=== PATIENT | male | born 1955 | race Caucasian/White ===

== ENCOUNTER 2021-12-10 05:55 | Inpatient (IN) | payer MEDICARE, SELFPAY ==
[2021-12-10] VITALS (13 sets, daily range): BP systolic 141–156; BP diastolic 81–108; PULSE 88–103; RESP 18–26; TEMP 36.4–36.8; O2SAT 87–100; BMI 40.6
--- NOTE | ~2021-12-10 | US_ITS ---
US venous doppler [facility] DATE: 12/11/2021 09:06 INDICATION: Swelling of the lower extremities TECHNIQUE: Real-time imaging and color flow imaging and Doppler analysis of the veins of the lower ex tremities COMPARISON: None FINDINGS: . The greater saphenous veins are patent. There is spontaneous and phasic flow and normal a ugmentation and color flow signal and normal compression of the deep veins of the lower extremities. IMPRESSION: No evidence of deep venous thrombosis of the lower extremities Reviewed, dictated and finalized at [facility]. Reviewed, dictated and finalized at location [facility].
--- NOTE | ~2021-12-10 | XR_ITS ---
XR chest 2V 12/10/2021 07:20 Indication: Shortness of breath Procedure: AP and lateral views of the chest Comparison: No prior studies for comparison. Findings: Heart size normal. Bibasilar infiltrates. No significant effusion or pneumothorax. No acute osseous abnormality. Impression: 1: Bibasilar infiltrates may represent atelectasis or pneumonia. Reviewed, dictated and finalized at location [facility]. Impression: 1: Bibasilar infiltrates may represent atelectasis or pneumonia.
--- NOTE | ~2021-12-10 | XR_ITS ---
EXAMINATION: XR chest 1V portable DATE: 12/13/2021 15:10 INDICATION: Shortness of breath. TECHNIQUE: A single frontal view of the chest was obtained on 2 radiographs. COMPARISON: Chest 2 views 12/10/2021 FINDINGS: There are lucencies in the upper lungs, consistent with emphysema. There is mild atelectasi s at the lung bases. No pleural effusion or pneumothorax. The heart size is normal. IMPRESSION: 1. Emphysema. 2. Mild atelectasis at the lung bases. Reviewed, dictated and finalized at location [facility].
--- NOTE | 2021-12-10 06:46 | ECG_ITS ---
Measurements Intervals [place] Rate: 97 P: 57 WI: 148 QRS: 58 QRSD: 99 T: 60 QT: 307 QTc: 390 Interpretive Statements SINUS RHYTHM WITH OCCASIONAL SUPRAVENTRICULAR PREMATURE COMPLEXES NONSPECIFIC T-WAVE ABNORMALITY NO PREVIOUS ECG AVAILABLE FOR COMPARISON Electronically Signed On 12-11-2021 12:20:48 CDT by Javier Beebe M.D.
[2021-12-10 07:05] LABS: Alveolar/Arterial O2 Gradient 14.9 mmHg; Base Excess ABG 7.2 mEq/l (+/-2.0); Carboxyhemoglobin 2.3 % THb (0-2.0); Device ROOM AIR; Fractional Inspired Oxygen 21 %; HCO3 ABG 33.4 mEq/l (22.0-26.0); Methemoglobin ABG 0.2 %THb (0-1.5); Oxygen Content ABG 22.6 %vol (16.0-22.0); Oxygen Saturation ABG 94.7 % (95.0-100.0); Oxyhemoglobin 92.5 % THb (90.0-100.0); PO2 ABG 72.6 mmHg (80.0-100.0); PO2 FiO2 Ratio Arterial Blood 3.46 %; Site Drawn LEFT BRACHIAL; Total Hemoglobin 17.4 g/dL (12.0-18.0); pH ABG 7.426 (7.350-7.450)
[2021-12-10 07:18] LABS: Basophils Absolute Auto 0.1 K/mm3 (0.0-0.1); Basophils Percent Auto 0.6 % (0.2-1.2); Eosinophils Absolute Auto 0.2 K/mm3 (0-0.3); Eosinophils Percent Auto 1.1 % (0-4.4); Hemoglobin 16.5 g/dL (14.0-18.0); Immature Granulocyte Absolute 0.26 K/mm3 (0.00-0.031); Immature Granulocyte Percent A 1.7 % (0-0.5); Lymphocytes Absolute Auto 0.88 K/mm3 (0.9-3.2); Lymphocytes Percent Auto 5.9 % (18.3-44.2); Mean Corpuscular Hemoglobin 30.9 pg (26-34); Mean Corpuscular Volume 93.6 fl (80-100); Mean Platelet Volume 9.5 fl (7.4-10.4); Monocytes Absolute Auto 1.5 K/mm3 (0.1-0.6); Monocytes Percent Auto 10.1 % (2.6-8.5); Neutrophils Percent Auto 80.6 % (45.5-73.1); Platelet Count Result 282 k/mm3 (150-375); Red Blood Count 5.34 M/mm3 (4.6-6.20); Red Cell Distribution Width 13.4 % (11.5-14.5); White Blood Count 14.9 K/mm3 (4.5-10.0)
[2021-12-10 07:19] LABS: Alanine Aminotransferase 99 U/L (6-50); Albumin Level 3.9 g/dL (3.5-5.1); Alkaline Phosphatase 104 U/L (38-126); Anion Gap 6 mmol/L (8-16); Aspartate Amino Transferase 158 U/L (17-59); Bilirubin,Total 1.2 mg/dL (0.2-1.3); Blood Urea Nitrogen 31 mg/dL (9-20); Calcium 8.9 mg/dL (8.4-10.2); Carbon Dioxide 35 mmol/L (22-30); Chloride 93 mmol/L (98-107); Estimated Glomerular Filt Rate > 60; Glucose 110 mg/dL (65-110); Sodium 134 mmol/L (137-145)
[2021-12-10 07:39] LABS: Influenza A QL RT-PCR Negative (Negative); Influenza B QL RT-PCR Negative (Negative); SARS-CoV-2 RNA PCR Negative
[2021-12-10] MEDS: IPRATROPIUM BR 0.02% INH SOLN 0.5 MG/2.5 ML VIAL INHALATION ×2 (08:00→20:54)
[2021-12-10] MEDS: ALBUTEROL SULFATE NEB 2.5 MG/3 ML INH 5 MG INHALATION ×2 (08:00→20:55)
[2021-12-10] MEDS: methylPREDNISolone SOD SUCC 125 MG VIAL IV PUSH (08:23)
[2021-12-10 08:46] LABS: Appearance Urine Cloudy (Clear); Bilirubin Urine 1+ (Negative); Blood Urine 2+ (Negative); Color Urine Yellow (Yellow); Glucose Urine UA Negative (Negative); Ketones Urine Trace mg/dL (Negative); Leukocyte Esterase Ur 2+ LEU/UL (Negative); Nitrate Urine Positive (Negative); Protein Urine 1+ mg/dL (Negative)
[2021-12-10 08:58] LABS: Bacteria Urine 2+ /hpf; Mucus Urine Heavy /lpf; Squamous Epithelial Cell Urine Rare /hpf (Few); WBC Urine >75 /hpf
[2021-12-10 08:59] LABS: Add Urine Microscopic? YES
--- NOTE | 2021-12-10 10:08 | ED.GENADULT ---
HPI - General Adult General Chief complaint: Urogenital-Male Stated complaint: hematuria x9 days Time Seen by Provider: 12/10/21 07:09 History of Present Illness HPI narrative: Patient is a 66-year-old male who presents ER with multiple complaints. First complaint is burning urination blood in his urine. Ongoing over the last week. He has been taking Azo without improvement. He is having urinary frequency and difficulty urinating at times as well. He endorses subjective fevers and chills. He also was found to be hypoxic upon arrival here. Has history of COPD. Reports mild cough that is chronic. No noticeable change in sputum. Related Data Home Medications Medication Instructions Recorded Confirmed albuterol sulfate 90 mcg/actuation inhalation 12/10/21 aerosol inhaler montelukast 10 mg tablet mg 12/10/21 omeprazole 20 mg capsule,delayed mg 12/10/21 release potassium chloride 10 mEq meq PO 12/10/21 tablet,extended release prednisone 5 mg tablet mg 12/10/21 Allergies Allergy/AdvReac Type Severity Reaction Status Date / Time Penicillins Allergy Unknown Verified 12/10/21 06:50 Review of Systems Review of Systems: All systems reviewed & are unremarkable except as noted in HPI and below Constitutional: Constitutional: Reports chills and Reports fever(s) ENT: Denies nasal congestion and Denies sore throat Cardiovascular: Cardiovascular: Denies chest pain, Denies radiating jaw, neck or arm pain and Denies slow heart rate Respiratory: Respiratory: Denies chest congestion, Reports cough, Reports dyspnea and Reports wheezing Gastrointestinal: Gastrointestinal: Reports abdominal pain, Denies nausea and Denies vomiting Genitourinary: Genitourinary: Reports dysuria and Reports urinary frequency PMFSH Past Medical History Medical History (Updated 12/10/21 @ 10:52 by Remy Hamlin MD) COPD (chronic obstructive pulmonary disease) Hypertension Surgical History Surgical History (Updated 12/10/21 @ 10:52 by Remy Hamlin MD) History of orthopedic surgery Right clavicle Left femur Social History Social History (Updated 12/10/21 @ 10:52 by Remy Hamlin MD) Smoking status: Current every day smoker Exam Narrative: GENERAL: Chronically ill-appearing, well-nourished, and in no acute distress. HEAD: Normocephalic, atraumatic. EYES: PERRL and EOMI. ENT: Mucous membranes moist. CHEST: Bilateral wheezing with basilar rales. No respiratory distress. HEART: Regular rate and rhythm. Normal peripheral pulses. ABDOMEN: Soft, mild lower abdominal tenderness without guarding, nondistended. EXTREMITIES: Normal range of motion. No edema. SKIN: Warm, dry, no rash. NEURO: Alert and oriented x3. PSYCH: Normal mood and affect. Course Course Emergency Course: Admit to hospitalist service. Still requiring oxygen after nebulizer treatment. Will place on antibiotics to cover both lung and urine infection. Patient also received steroids. Vital Signs Vital signs: Vital Signs Temperature 98.2 F 12/10/21 06:44 Pulse Rate 101 H 12/10/21 06:44 Respiratory Rate 19 12/10/21 06:44 Blood Pressure 156/108 H 12/10/21 06:44 Pulse Oximetry 98 12/10/21 06:44 Oxygen Delivery Nasal Cannula 12/10/21 06:44 Oxygen Flow Rate 2 12/10/21 06:44 Temperature 98.2 F 12/10/21 06:44 Pulse Rate 99 12/10/21 08:10 Respiratory Rate 18 12/10/21 08:10 Blood Pressure 156/108 H 12/10/21 06:47 Pulse Oximetry 100 12/10/21 08:10 Oxygen Delivery Nasal Cannula 12/10/21 06:44 Oxygen Flow Rate 2 12/10/21 06:44 Medical Decision Making Vital Signs Vital Signs: Vital Signs Temperature 98.2 F 12/10/21 06:44 Pulse Rate 101 H 12/10/21 06:44 Respiratory Rate 19 12/10/21 06:44 Blood Pressure 156/108 H 12/10/21 06:44 Pulse Oximetry 98 12/10/21 06:44 Oxygen Delivery Nasal Cannula 12/10/21 06:44 Oxygen Flow Rate 2 12/10/21 06:44 Temperature 98.2
--- NOTE | 2021-12-10 11:22 | ADMGEN ---
This patient, Vladislav Driver, was admitted to [facility] Surg Room 323-02. Patient/family oriented to hospital policies and general routines including ID bracelet, bed and alarms, visiting hours, pain management, procedures, bathroom and other care routines, personal items, smoking policy, room service/diet, and visiting hours. Information on how to activate the Rapid Response Team has been discussed. Patient/Family are encouraged to report perceived risks to care and to ask questions if they do not understand what they are told or what they should do.
[2021-12-10] MEDS: methylPREDNISolone SOD SUCC 125 MG VIAL 60 MG IV PUSH (12:06)
--- NOTE | 2021-12-10 13:00 | PM.IMHP ---
H&P: HPI History of Present Illness Date/Time: 12/10/21 13:00 Chief Complaint: Weakness and urinary symptoms. Narrative: This is a pleasant 66-year-old male smoker with steroid dependent COPD and chronic respiratory failure with hypoxia (he does not use his oxygen at home however) who presented to the emergency department via EMS from home for evaluation of generalized weakness and urinary symptoms. He has not felt well for the last 9 days with complaints of urinary frequency with little output, urgency, hesitancy, dysuria, feelings of incomplete bladder emptying, and mild hematuria. He also endorses subjective fever, chills, and poor appetite although he has not had any nausea or vomiting. He has gotten progressively more weak and thus he came in today for evaluation. He has not been evaluated prior to today but has been taking Azo at home without much relief. On arrival to the emergency department his SpO2 was 87% on room air and he was started on 2 liters nasal cannula; again he does have oxygen at home however he does not use it. Chest x-ray showed bibasilar infiltrates which may represent atelectasis or pneumonia and with further questioning he really has no symptoms to suggest pneumonia and he specifically denies chest pain, pleuritic pain, and productive cough. Urinalysis in the emergency department does indeed look infected and he is being admitted in this setting for IV antibiotics. Review of Systems Review of Systems: Twelve systems were reviewed. He has not had a documented fever. No headache or neck ache. He has chronic sinusitis and he actually uses his nebulizer up his nostrils which seemed to help briefly with his congestion. No sore throat. No cough. He denies sick contacts. He has not had chest pain or pleuritic pain. No palpitations or orthopnea. He has mild lower extremity edema which is unchanged. Appetite has not been great. No vomiting. No diarrhea. No back or abdominal pain. He has chronic and widespread hyperpigmented lesions which occasionally scab over, more noticeably on the arms. These have been present for 20+ years and according to the patient nobody has ever given him a diagnosis. They were not necessarily pruritic though he does scratch them occasionally while I am in the room. Except as documented, all other systems were reviewed and are negative. [facility] Past Medical History Medical History (Updated 12/10/21 @ 16:00 by Amie Andrade PA-C) Chronic obstructive pulmonary disease Chronic respiratory failure with hypoxia He has oxygen at home but does not use it. Hypertension Tobacco dependence Surgical History Surgical History History of orthopedic surgery Right clavicle Left femur Family History Family History (Updated 12/10/21 @ 15:53 by Amie Andrade PA-C) Other Hypertension Social History Social History (Updated 12/10/21 @ 15:54 by Amie Andrade PA-C) Social History: Surrogate medical decision maker: Emerson Driver, son. Code status: Full code. Smoking packs per day: 1 Smoking cigarettes per day: 20.0 Smoking status: Current every day smoker Tobacco type: cigarettes Alcohol intake: current Drinks per week: 2 Alcohol use details: 2 beers a week. Substance use: never Last use: Occasional recreational marijuana use. Has the Lack of Transportation Kept You From Medical Appointments or From Getting Medications?: Yes Within the Past 12 Months, Were You Worried Whether Your Food Would Run Out Before You Got Money to Buy More?: Often True What is Your Housing Situation Today?: I Have Housing Are You Worried That in the Next 2 Months, You May Not Have Your Own Housing to Live In?: No Do You Have Trouble Paying Your Heating Or Electricity Bill?: Yes Do You Have Trouble Paying For Medicines?: No Are You Currently Unemployed and Looking for Work?: No Highest Level of Education Completed: Grade Sc
[2021-12-10 13:59] LABS: Anion Gap 9 mmol/L (8-16); Blood Urea Nitrogen 26 mg/dL (9-20); Calcium 8.9 mg/dL (8.4-10.2); Carbon Dioxide 32 mmol/L (22-30); Chloride 93 mmol/L (98-107); Creatine Kinase 480 U/L (55-170); Estimated CRCL calculation 125 ml/min; Estimated Glomerular Filt Rate > 60; Glucose 152 mg/dL (65-110); Magnesium 2.4 mg/dL (1.6-2.3); Potassium 4.2 mmol/L (3.4-5.0); Sodium 134 mmol/L (137-145)
[2021-12-10 14:51] LABS: Procalcitonin 1.1 ng/mL
[2021-12-10 15:10] LABS: Thyroid Stimulating Hormone Reflex 0.261 uIU/mL (0.465-4.68)
--- NOTE | 2021-12-10 16:23 | PCRCNOTE ---
Window of time for administration has passed. See next scheduled administration.
[2021-12-10] MEDS: SODIUM CHLORIDE 0.9% IV 1,000 ML 100 ML IV CONT (16:34)
[2021-12-10 16:56] LABS: Hepatitis B Surface Antigen Negative (Negative)
[2021-12-10 17:03] LABS: HAV RESULT Negative (Negative); Hepatitis B Core IgM Result Negative (Negative)
[2021-12-10 17:13] LABS: Hepatitis C Virus Antibody Negative (Negative)
[2021-12-10 22:20] LABS: Total Triiodothyronine (T3) 0.92 NG/ML (0.97-1.69)
[2021-12-11] VITALS (13 sets, daily range): BP systolic 126–142; BP diastolic 73–94; PULSE 82–102; RESP 18–28; TEMP 36.5–36.6; O2SAT 91–96
[2021-12-11] MEDS: ALBUTEROL SULFATE NEB 2.5 MG/3 ML INH 5 MG INHALATION ×3 (01:38→19:49)
[2021-12-11] MEDS: IPRATROPIUM BR 0.02% INH SOLN 0.5 MG/2.5 ML VIAL INHALATION ×3 (01:38→19:49)
[2021-12-11 07:35] LABS: Hematocrit 45.9 % (42.0-52.0); Hemoglobin 15.3 g/dL (14.0-18.0); Mean Corpuscular HGB Conc 33.3 g/dl (32-36); Mean Corpuscular Hemoglobin 30.7 pg (26-34); Mean Corpuscular Volume 92.2 fl (80-100); Mean Platelet Volume 9.7 fl (7.4-10.4); Platelet Count Result 310 k/mm3 (150-375); Red Blood Count 4.98 M/mm3 (4.6-6.20); Red Cell Distribution Width 13.2 % (11.5-14.5); White Blood Count 20.1 K/mm3 (4.5-10.0)
[2021-12-11 07:56] LABS: Alanine Aminotransferase 84 U/L (6-50); Albumin Level 3.5 g/dL (3.5-5.1); Alkaline Phosphatase 83 U/L (38-126); Anion Gap 10 mmol/L (8-16); Aspartate Amino Transferase 90 U/L (17-59); Bilirubin,Total 0.7 mg/dL (0.2-1.3); Blood Urea Nitrogen 16 mg/dL (9-20); Calcium 8.5 mg/dL (8.4-10.2); Carbon Dioxide 34 mmol/L (22-30); Chloride 94 mmol/L (98-107); Creatine Kinase 283 U/L (55-170); Estimated CRCL calculation 124 ml/min; Estimated Glomerular Filt Rate > 60; Glucose 119 mg/dL (65-110); Potassium 3.8 mmol/L (3.4-5.0); Sodium 138 mmol/L (137-145)
[2021-12-11] MEDS: MONTELUKAST SODIUM 10 MG TABLET PO (08:03)
[2021-12-11] MEDS: predniSONE 5 MG TABLET PO ×2 (08:03→16:02)
[2021-12-11] MEDS: PANTOPRAZOLE 40 MG TABLET PO (08:03)
[2021-12-11] MEDS: EUCERIN CREAM 120 GM JAR 1 APPLIC TOPICAL (08:03)
[2021-12-11] MEDS: POTASSIUM CHLORIDE 10 MEQ TABLET.ER PO (08:03)
[2021-12-11] MEDS: ENOXAPARIN 40 MG/0.4 ML SYRINGE SUB-Q (08:03)
[2021-12-11] MEDS: BUMETANIDE 1 MG TABLET PO (08:03)
[2021-12-11] MEDS: LORATADINE 10 MG TABLET PO (08:03)
--- NOTE | 2021-12-11 13:46 | PM.IMPN ---
Progress Note: A&P Assessment and Plan (1) Urinary tract infection: Code(s): N39.0 - Urinary tract infection, site not specified Status: Acute Assessment and Plan: The patient presents to the ER today with urinary symptoms including urgency, hesitancy, frequency, feelings of incomplete bladder evacuation, dysuria, and mild hematuria over the past 9 days. Urine indeed looks infected and he has been started on ceftriaxone, pending urine culture. Monterroso catheter was placed in the emergency department though there is no documentation as to how much urine was yielded on insertion. He will need a voiding trial before discharge. 12/11/21: Continue Rocephin for urinary tract infection. Urine culture still pending. Will need voiding trial prior to removal of catheter prior to discharge. (2) Elevated LFTs: Code(s): R79.89 - Other specified abnormal findings of blood chemistry Status: Acute Assessment and Plan: Abdominal exam is benign and he has no known history of liver disease. He denies significant alcohol consumption. For now we will check a hepatitis panel and continue to monitor. CK ordered as he is also feeling weak. 12/11/21: Transaminases continue to be elevated, however they are markedly decreased as compared to yesterday. Bilirubin remains normal at 0.7. (3) Dehydration: Code(s): E86.0 - Dehydration Status: Acute Assessment and Plan: He looks dry on exam and by labs and he will be judiciously hydrated overnight. 12/11/21: Normal creatinine and BUN. CK elevated at 283. This is a decrease from 480 yesterday. Continue normal saline at 100 mL/hour. re-evaluate labs in a.m. (4) Abnormal chest x-ray: Code(s): R93.89 - Abnormal findings on diagnostic imaging of other specified body structures Status: Acute Assessment and Plan: Chest x-ray shows bibasilar infiltrates with may represent atelectasis or pneumonia. His history is not really suggestive of pneumonia although we will continue azithromycin for now. 12/11/21: patient with elevated WBC this morning at 20,000. This is an increase from yesterday, however patient is not showing any overt signs SIRS or sepsis. Suspicion elevation is secondary to prednisone as well as his current urinary tract infection. Patient shows no signs of an overt pneumonia. We will continue Rocephin but discontinue Zithromax at this time with atelectasis and COPD exacerbation as the most likely reason for his cough. (5) Chronic obstructive pulmonary disease: Code(s): J44.9 - Chronic obstructive pulmonary disease, unspecified Status: Acute Assessment and Plan: He is steroid dependent on low-dose daily prednisone. No acute exacerbation. Continue inhalers and nebulizers. 12/11/21: Continue Steroids as well as inhalers /nebulizers. Continue supplemental oxygen. Patient is post to wear this at home. I discussed with him the importance compliance. Patient was given incentive spirometer. (6) Tobacco dependence: Code(s): F17.200 - Nicotine dependence, unspecified, uncomplicated Status: Acute Assessment and Plan: Smoking cessation is imperative in was encouraged. He declines the need for a nicotine patch at this time. 12/11/21: Spent approximately 10 minutes discussing importance of smoking cessation. (7) Hypertension: Code(s): I10 - Essential (primary) hypertension Status: Acute Assessment and Plan: Systolic blood pressures have been running in the 140s to 150s. Antihypertensives will be resumed and blood pressures will be monitored daily. 12/11/21: Continue home medications and monitor. Currently stable. (8) Chronic respiratory failure with hypoxia: Code(s): J96.11 - Chronic respiratory failure with hypoxia Status: Acute Assessment and Plan: He has chronic hypoxia and an oxygen tank at home which he does not use. 12/11/21: No
[2021-12-11] MEDS: SODIUM CHLORIDE 0.9% IV 1,000 ML 100 ML IV CONT (16:01)
[2021-12-11] MEDS: BETAMETHASONE/CLOTRIMAZOLE CR 15 GM TUBE 1 APPLIC TOPICAL (20:34)
[2021-12-12] VITALS (14 sets, daily range): BP systolic 136–162; BP diastolic 77–97; PULSE 72–95; RESP 16–26; TEMP 36.1–36.7; O2SAT 92–97
[2021-12-12] MEDS: ALBUTEROL SULFATE NEB 2.5 MG/3 ML INH 5 MG INHALATION ×4 (01:42→22:29)
[2021-12-12] MEDS: IPRATROPIUM BR 0.02% INH SOLN 0.5 MG/2.5 ML VIAL INHALATION ×4 (01:42→22:29)
[2021-12-12] MEDS: SODIUM CHLORIDE 0.9% IV 1,000 ML 100 ML IV CONT (03:04)
[2021-12-12 06:56] LABS: Basophils Absolute Auto 0.1 K/mm3 (0.0-0.1); Basophils Percent Auto 0.9 % (0.2-1.2); Eosinophils Absolute Auto 0.2 K/mm3 (0-0.3); Eosinophils Percent Auto 1.5 % (0-4.4); Hematocrit 44.3 % (42.0-52.0); Hemoglobin 14.5 g/dL (14.0-18.0); Immature Granulocyte Absolute 0.38 K/mm3 (0.00-0.031); Immature Granulocyte Percent A 2.9 % (0-0.5); Lymphocytes Absolute Auto 1.55 K/mm3 (0.9-3.2); Mean Corpuscular HGB Conc 32.7 g/dl (32-36); Mean Corpuscular Hemoglobin 30.6 pg (26-34); Mean Corpuscular Volume 93.5 fl (80-100); Mean Platelet Volume 9.4 fl (7.4-10.4); Monocytes Absolute Auto 1.3 K/mm3 (0.1-0.6); Monocytes Percent Auto 10.3 % (2.6-8.5); Neutrophils Absolute Auto 9.4 K/mm3 (1.3-6.7); Neutrophils Percent Auto 72.4 % (45.5-73.1); Platelet Count Result 292 k/mm3 (150-375); Red Blood Count 4.74 M/mm3 (4.6-6.20); Red Cell Distribution Width 13.2 % (11.5-14.5); White Blood Count 12.9 K/mm3 (4.5-10.0)
[2021-12-12 07:07] LABS: Alanine Aminotransferase 80 U/L (6-50); Albumin Level 3.1 g/dL (3.5-5.1); Alkaline Phosphatase 66 U/L (38-126); Anion Gap 8 mmol/L (8-16); Aspartate Amino Transferase 64 U/L (17-59); Bilirubin,Total 0.5 mg/dL (0.2-1.3); Blood Urea Nitrogen 17 mg/dL (9-20); Calcium 8.1 mg/dL (8.4-10.2); Carbon Dioxide 35 mmol/L (22-30); Chloride 95 mmol/L (98-107); Estimated CRCL calculation 125 ml/min; Estimated Glomerular Filt Rate > 60; Glucose 90 mg/dL (65-110); Potassium 3.4 mmol/L (3.4-5.0); Sodium 138 mmol/L (137-145)
[2021-12-12] MEDS: FLUTICASONE/SALMETEROL 115-21 MCG INHALER 1 PUFF 2 PUFF INHALATION ×2 (08:08→22:29)
[2021-12-12] MEDS: MONTELUKAST SODIUM 10 MG TABLET PO (09:33)
[2021-12-12] MEDS: PANTOPRAZOLE 40 MG TABLET PO (09:33)
[2021-12-12] MEDS: LORATADINE 10 MG TABLET PO (09:33)
[2021-12-12] MEDS: POTASSIUM CHLORIDE 10 MEQ TABLET.ER PO (09:34)
[2021-12-12] MEDS: predniSONE 5 MG TABLET PO ×2 (09:34→17:35)
[2021-12-12] MEDS: BUMETANIDE 1 MG TABLET PO (09:34)
[2021-12-12] MEDS: BETAMETHASONE/CLOTRIMAZOLE CR 15 GM TUBE 1 APPLIC TOPICAL ×2 (09:35→20:26)
[2021-12-12] MEDS: ENOXAPARIN 40 MG/0.4 ML SYRINGE SUB-Q (09:35)
[2021-12-12] MEDS: EUCERIN CREAM 120 GM JAR 1 APPLIC TOPICAL (09:36)
--- NOTE | 2021-12-12 10:30 | P.PNIM_ITS ---
Progress Note: A&P Assessment and Plan (1) Urinary tract infection: Code(s): N39.0 - Urinary tract infection, site not specified Status: Acute Assessment and Plan: * presents to the ER with urinary symptoms including urgency, hesitancy, frequency, feelings of incomplete bladder evacuation, dysuria, and mild hematuria over the past 9 days. * UA appeared infection * IV ceftriaxone started, will switch to levaquin * Urine culture grew Ecoli * Monterroso catheter was placed in the emergency department though there is no documentation as to how much urine was yielded on insertion. * voiding trial before ordered at this time (2) Elevated LFTs: Code(s): R79.89 - Other specified abnormal findings of blood chemistry Status: Acute Assessment and Plan: * Abdominal exam is benign * no known history of liver disease. * hepatitis panel negative * CK 283 * current AST/ALT 64/80 * Stable at this time and trending down (3) Dehydration: Code(s): E86.0 - Dehydration Status: Acute Assessment and Plan: * CK mildly elevated upon arrival * IV fluids given for hydration * BUN/Cr stable at 17/0.60 * Resolved * Fluids stopped (4) Abnormal chest x-ray: Code(s): R93.89 - Abnormal findings on diagnostic imaging of other specified body structures Status: Acute Assessment and Plan: * Chest x-ray shows bibasilar infiltrates with may represent atelectasis or pn eumonia. * continue azithromycin for now. * WBC decreased to 12.9 * Does not appear to be a PNA * No notable cough (5) Chronic obstructive pulmonary disease: Code(s): J44.9 - Chronic obstructive pulmonary disease, unspecified Status: Acute Assessment and Plan: He is steroid dependent on low-dose daily prednisone. No acute exacerbation. Continue inhalers and nebulizers. * 12/11/21: Continue Steroids as well as inhalers /nebulizers. * Continue supplemental oxygen. Patient is post to wear this at home. I discussed with him the importance compliance. Patient was given incentive spirometer. * 12/12/21 Switched antibiotics to PO levaquin at this time (6) Tobacco dependence: Code(s): F17.200 - Nicotine dependence, unspecified, uncomplicated Status: Acute Assessment and Plan: Smoking cessation is imperative in was encouraged. He declines the need for a nicotine patch at this time. * 12/11/21: Spent approximately 10 minutes discussing importance of smoking cessation. (7) Hypertension: Code(s): I10 - Essential (primary) hypertension Status: Acute Assessment and Plan: Systolic blood pressures have been running in the 140s to 150s. Antihypertensives will be resumed and blood pressures will be monitored daily. * 12/11/21: Continue home medications and monitor. Currently stable. * 12/12/21 BP remains stable, continue to trend (8) Chronic respiratory failure with hypoxia: Code(s): J96.11 - Chronic respiratory failure with hypoxia Status: Acute Assessment and Plan: He has chronic hypoxia and an oxygen tank at home which he does not use. * 12/11/21: Non-compliance with therapy. Discussed and educated on the importance of oxygen compliance. MOnitor oxygen sats. * 12/12/21 denies home o2, however appears to be noncompliant, likely at baseline (9) Dermatitis: Code(s): L30.9 - Dermatitis, unspecified
--- NOTE | 2021-12-12 10:30 | PM.IMPN ---
Progress Note: A&P Assessment and Plan (1) Urinary tract infection: Code(s): N39.0 - Urinary tract infection, site not specified Status: Acute Assessment and Plan: presents to the ER with urinary symptoms including urgency, hesitancy, frequency, feelings of incomplete bladder evacuation, dysuria, and mild hematuria over the past 9 days. UA appeared infection IV ceftriaxone started, will switch to levaquin Urine culture grew Ecoli Monterroso catheter was placed in the emergency department though there is no documentation as to how much urine was yielded on insertion. voiding trial before ordered at this time (2) Elevated LFTs: Code(s): R79.89 - Other specified abnormal findings of blood chemistry Status: Acute Assessment and Plan: Abdominal exam is benign no known history of liver disease. hepatitis panel negative CK 283 current AST/ALT 64/80 Stable at this time and trending down (3) Dehydration: Code(s): E86.0 - Dehydration Status: Acute Assessment and Plan: CK mildly elevated upon arrival IV fluids given for hydration BUN/Cr stable at 17/0.60 Resolved Fluids stopped (4) Abnormal chest x-ray: Code(s): R93.89 - Abnormal findings on diagnostic imaging of other specified body structures Status: Acute Assessment and Plan: Chest x-ray shows bibasilar infiltrates with may represent atelectasis or pneumonia. continue azithromycin for now. WBC decreased to 12.9 Does not appear to be a PNA No notable cough (5) Chronic obstructive pulmonary disease: Code(s): J44.9 - Chronic obstructive pulmonary disease, unspecified Status: Acute Assessment and Plan: He is steroid dependent on low-dose daily prednisone. No acute exacerbation. Continue inhalers and nebulizers. 12/11/21: Continue Steroids as well as inhalers /nebulizers. Continue supplemental oxygen. Patient is post to wear this at home. I discussed with him the importance compliance. Patient was given incentive spirometer. 12/12/21 Switched antibiotics to PO levaquin at this time (6) Tobacco dependence: Code(s): F17.200 - Nicotine dependence, unspecified, uncomplicated Status: Acute Assessment and Plan: Smoking cessation is imperative in was encouraged. He declines the need for a nicotine patch at this time. 12/11/21: Spent approximately 10 minutes discussing importance of smoking cessation. (7) Hypertension: Code(s): I10 - Essential (primary) hypertension Status: Acute Assessment and Plan: Systolic blood pressures have been running in the 140s to 150s. Antihypertensives will be resumed and blood pressures will be monitored daily. 12/11/21: Continue home medications and monitor. Currently stable. 12/12/21 BP remains stable, continue to trend (8) Chronic respiratory failure with hypoxia: Code(s): J96.11 - Chronic respiratory failure with hypoxia Status: Acute Assessment and Plan: He has chronic hypoxia and an oxygen tank at home which he does not use. 12/11/21: Non-compliance with therapy. Discussed and educated on the importance of oxygen compliance. MOnitor oxygen sats. 12/12/21 denies home o2, however appears to be noncompliant, likely at baseline (9) Dermatitis: Code(s): L30.9 - Dermatitis, unspecified Status: Acute Assessment and Plan: He has widespread subcentimeter hyperpigmented macules as detailed above which have been present for over 20 years. Skin looks quite dry, Eucerin cream ordered. 12/11/21: Rash again noted for this provider. Pt. denies itching or discomfort. He may continue Eucerin cream. Suggest outpatient Dermatology follow-up. (10) Athlete's foot: Code(s): B35.3 - Tinea pedis Status: Acute Assessment and Plan: Bilateral athlete's foot in a moccasin type pattern. T
--- NOTE | 2021-12-12 11:18 | PCPTNOTE ---
Attempted PT evaluation, Pt on the phone. RN aware. Will follow
[2021-12-12] MEDS: levoFLOXacin 750 MG TABLET PO (11:30)
[2021-12-13] VITALS (8 sets, daily range): BP systolic 113–138; BP diastolic 73–89; PULSE 74–94; RESP 18–20; TEMP 36.6–36.7; O2SAT 90–98
[2021-12-13] MEDS: ALBUTEROL SULFATE (*SP) AEROSOL 1 PUFF 2 PUFF INHALATION (06:10)
[2021-12-13] MEDS: predniSONE 5 MG TABLET PO ×2 (08:10→16:15)
[2021-12-13] MEDS: levoFLOXacin 750 MG TABLET PO (08:10)
[2021-12-13] MEDS: MONTELUKAST SODIUM 10 MG TABLET PO (08:10)
[2021-12-13] MEDS: LORATADINE 10 MG TABLET PO (08:10)
[2021-12-13] MEDS: BUMETANIDE 1 MG TABLET PO (08:10)
[2021-12-13] MEDS: POTASSIUM CHLORIDE 10 MEQ TABLET.ER PO (08:11)
[2021-12-13] MEDS: EUCERIN CREAM 120 GM JAR 1 APPLIC TOPICAL (08:11)
[2021-12-13] MEDS: BETAMETHASONE/CLOTRIMAZOLE CR 15 GM TUBE 1 APPLIC TOPICAL ×2 (08:11→20:35)
[2021-12-13] MEDS: ENOXAPARIN 40 MG/0.4 ML SYRINGE SUB-Q (08:11)
[2021-12-13] MEDS: PANTOPRAZOLE 40 MG TABLET PO (08:11)
[2021-12-13] MEDS: ALBUTEROL SULFATE NEB 2.5 MG/3 ML INH 5 MG INHALATION ×2 (08:19→14:58)
[2021-12-13] MEDS: IPRATROPIUM BR 0.02% INH SOLN 0.5 MG/2.5 ML VIAL INHALATION ×2 (08:20→14:58)
[2021-12-13] MEDS: FLUTICASONE/SALMETEROL 115-21 MCG INHALER 1 PUFF 2 PUFF INHALATION (08:20)
--- NOTE | 2021-12-13 10:15 | PM.IMPN ---
Progress Note: A&P Assessment and Plan (1) Urinary tract infection: Code(s): N39.0 - Urinary tract infection, site not specified Status: Acute Assessment and Plan: presents to the ER with urinary symptoms including urgency, hesitancy, frequency, feelings of incomplete bladder evacuation, dysuria, and mild hematuria over the past 9 days. UA appeared infection IV ceftriaxone started, will switch to levaquin Urine culture grew Ecoli Monterroso catheter was placed in the emergency department though there is no documentation as to how much urine was yielded on insertion. voiding trial was successful (2) Elevated LFTs: Code(s): R79.89 - Other specified abnormal findings of blood chemistry Status: Acute Assessment and Plan: Abdominal exam is benign no known history of liver disease. hepatitis panel negative CK 283 current AST/ALT 72/93 Stable at this time and trending down (3) Dehydration: Code(s): E86.0 - Dehydration Status: Acute Assessment and Plan: CK mildly elevated upon arrival IV fluids given for hydration BUN/Cr stable at 15/0.60 Resolved Fluids stopped (4) Abnormal chest x-ray: Code(s): R93.89 - Abnormal findings on diagnostic imaging of other specified body structures Status: Acute Assessment and Plan: Chest x-ray shows bibasilar infiltrates with may represent atelectasis or pneumonia. continue azithromycin for now. WBC decreased to 12.9 Does not appear to be a PNA No notable cough (5) Chronic obstructive pulmonary disease: Code(s): J44.9 - Chronic obstructive pulmonary disease, unspecified Status: Acute Assessment and Plan: He is steroid dependent on low-dose daily prednisone. No acute exacerbation. Continue inhalers and nebulizers. 12/11/21: Continue Steroids as well as inhalers /nebulizers. Continue supplemental oxygen. Patient is post to wear this at home. I discussed with him the importance compliance. Patient was given incentive spirometer. 12/12/21 Switched antibiotics to PO levaquin at this time Stable (6) Tobacco dependence: Code(s): F17.200 - Nicotine dependence, unspecified, uncomplicated Status: Acute Assessment and Plan: Smoking cessation is imperative in was encouraged. He declines the need for a nicotine patch at this time. 12/11/21: Spent approximately 10 minutes discussing importance of smoking cessation. (7) Hypertension: Code(s): I10 - Essential (primary) hypertension Status: Acute Assessment and Plan: Systolic blood pressures have been running in the 140s to 150s. Antihypertensives will be resumed and blood pressures will be monitored daily. 12/11/21: Continue home medications and monitor. Currently stable. 12/12/21 BP remains stable, continue to trend 12/13/21 BP remains stable at 138/89 (8) Chronic respiratory failure with hypoxia: Code(s): J96.11 - Chronic respiratory failure with hypoxia Status: Acute Assessment and Plan: He has chronic hypoxia and an oxygen tank at home which he does not use. 12/11/21: Non-compliance with therapy. Discussed and educated on the importance of oxygen compliance. MOnitor oxygen sats. 12/12/21 denies home o2, however appears to be noncompliant, likely at baseline 12/13/21 seems to be worse at this time, continue oxygen chest xray ordered (9) Dermatitis: Code(s): L30.9 - Dermatitis, unspecified Status: Acute Assessment and Plan: He has widespread subcentimeter hyperpigmented macules as detailed above which have been present for over 20 years. Skin looks quite dry, Eucerin cream ordered. 12/11/21: Rash again noted for this provider. Pt. denies itching or discomfort. He may continue Eucerin cream. Suggest outpatient Dermatology follow-up. (10) Athlete's foot: Code(s): B35.3 - T
--- NOTE | 2021-12-13 10:15 | P.PNIM_ITS ---
Progress Note: A&P Assessment and Plan (1) Urinary tract infection: Code(s): N39.0 - Urinary tract infection, site not specified Status: Acute Assessment and Plan: * presents to the ER with urinary symptoms including urgency, hesitancy, frequency, feelings of incomplete bladder evacuation, dysuria, and mild hematuria over the past 9 days. * UA appeared infection * IV ceftriaxone started, will switch to levaquin * Urine culture grew Ecoli * Monterroso catheter was placed in the emergency department though there is no documentation as to how much urine was yielded on insertion. * voiding trial was successful (2) Elevated LFTs: Code(s): R79.89 - Other specified abnormal findings of blood chemistry Status: Acute Assessment and Plan: * Abdominal exam is benign * no known history of liver disease. * hepatitis panel negative * CK 283 * current AST/ALT 72/93 * Stable at this time and trending down (3) Dehydration: Code(s): E86.0 - Dehydration Status: Acute Assessment and Plan: * CK mildly elevated upon arrival * IV fluids given for hydration * BUN/Cr stable at 15/0.60 * Resolved * Fluids stopped (4) Abnormal chest x-ray: Code(s): R93.89 - Abnormal findings on diagnostic imaging of other specified body structures Status: Acute Assessment and Plan: * Chest x-ray shows bibasilar infiltrates with may represent atelectasis or pneumonia. * continue azithromycin for now. * WBC decreased to 12.9 * Does not appear to be a PNA * No notable cough (5) Chronic obstructive pulmonary disease: Code(s): J44.9 - Chronic obstructive pulmonary disease, unspecified Status: Acute Assessment and Plan: He is steroid dependent on low-dose daily prednisone. No acute exacerbation. Continue inhalers and nebulizers. * 12/11/21: Continue Steroids as well as inhalers /nebulizers. * Continue supplemental oxygen. Patient is post to wear this at home. I discussed with him the importance compliance. Patient was given incentive spirometer. * 12/12/21 Switched antibiotics to PO levaquin at this time * Stable (6) Tobacco dependence: Code(s): F17.200 - Nicotine dependence, unspecified, uncomplicated Status: Acute Assessment and Plan: Smoking cessation is imperative in was encouraged. He declines the need for a nicotine patch at this time. * 12/11/21: Spent approximately 10 minutes discussing importance of smoking cessation. (7) Hypertension: Code(s): I10 - Essential (primary) hypertension Status: Acute Assessment and Plan: Systolic blood pressures have been running in the 140s to 150s. Antihypertensives will be resumed and blood pressures will be monitored daily. * 12/11/21: Continue home medications and monitor. Currently stable. * 12/12/21 BP remains stable, continue to trend * 12/13/21 BP remains stable at 138/89 (8) Chronic respiratory failure with hypoxia: Code(s): J96.11 - Chronic respiratory failure with hypoxia Status: Acute Assessment and Plan: He has chronic hypoxia and an oxygen tank at home which he does not use. * 12/11/21: Non-compliance with therapy. Discussed and educated on the importance of oxygen compliance. MOnitor oxygen sats. * 12/12/21 denies home o2, however appears to be noncompliant, likely at baseline * 12/13/21 seems to be wor
--- NOTE | 2021-12-13 10:23 | PC.NURSE ---
Medications administered 12/13/21 [id number] by Claudia Gilbert RN.
[2021-12-13 10:52] LABS: Alanine Aminotransferase 93 U/L (6-50); Albumin Level 3.8 g/dL (3.5-5.1); Alkaline Phosphatase 71 U/L (38-126); Anion Gap 6 mmol/L (8-16); Aspartate Amino Transferase 72 U/L (17-59); Blood Urea Nitrogen 15 mg/dL (9-20); Calcium 8.5 mg/dL (8.4-10.2); Carbon Dioxide 37 mmol/L (22-30); Chloride 92 mmol/L (98-107); Estimated CRCL calculation 125 ml/min; Estimated Glomerular Filt Rate > 60; Glucose 96 mg/dL (65-110); Magnesium 2.1 mg/dL (1.6-2.3); Sodium 135 mmol/L (137-145)
[2021-12-13] MEDS: ACETAMINOPHEN 325 MG TABLET 650 MG PO (11:23)
[2021-12-13 15:10] LABS: Basophils Absolute Auto 0.1 K/mm3 (0.0-0.1); Basophils Percent Auto 0.9 % (0.2-1.2); Eosinophils Absolute Auto 0.3 K/mm3 (0-0.3); Eosinophils Percent Auto 1.9 % (0-4.4); Hematocrit 48.8 % (42.0-52.0); Immature Granulocyte Absolute 0.59 K/mm3 (0.00-0.031); Immature Granulocyte Percent A 4.3 % (0-0.5); Lymphocytes Absolute Auto 1.35 K/mm3 (0.9-3.2); Lymphocytes Percent Auto 9.8 % (18.3-44.2); Mean Corpuscular HGB Conc 32.8 g/dl (32-36); Mean Corpuscular Hemoglobin 31.1 pg (26-34); Mean Corpuscular Volume 94.9 fl (80-100); Mean Platelet Volume 9.1 fl (7.4-10.4); Monocytes Absolute Auto 0.9 K/mm3 (0.1-0.6); Monocytes Percent Auto 6.8 % (2.6-8.5); Neutrophils Absolute Auto 10.5 K/mm3 (1.3-6.7); Neutrophils Percent Auto 76.3 % (45.5-73.1); Platelet Count Result 319 k/mm3 (150-375); Red Blood Count 5.14 M/mm3 (4.6-6.20); Red Cell Distribution Width 13.4 % (11.5-14.5); White Blood Count 13.8 K/mm3 (4.5-10.0)
--- NOTE | 2021-12-13 16:03 | PCSTNOTE ---
Please refer to the Bedside Swallow Evaluation in the EMR. Please note, silent aspiration cannot be ruled out at bedside.
[2021-12-14] VITALS (14 sets, daily range): BP systolic 120–132; BP diastolic 69–84; PULSE 72–91; RESP 16–24; TEMP 36.4–36.9; O2SAT 90–95
[2021-12-14] MEDS: ALBUTEROL SULFATE NEB 2.5 MG/3 ML INH 5 MG INHALATION ×4 (02:36→21:00)
[2021-12-14] MEDS: IPRATROPIUM BR 0.02% INH SOLN 0.5 MG/2.5 ML VIAL INHALATION ×4 (02:36→20:59)
[2021-12-14 07:29] LABS: Basophils Absolute Auto 0.1 K/mm3 (0.0-0.1); Basophils Percent Auto 1.1 % (0.2-1.2); Eosinophils Absolute Auto 0.4 K/mm3 (0-0.3); Eosinophils Percent Auto 3.5 % (0-4.4); Hematocrit 48.1 % (42.0-52.0); Hemoglobin 16.3 g/dL (14.0-18.0); Immature Granulocyte Absolute 0.63 K/mm3 (0.00-0.031); Immature Granulocyte Percent A 5.1 % (0-0.5); Lymphocytes Absolute Auto 1.88 K/mm3 (0.9-3.2); Lymphocytes Percent Auto 15.2 % (18.3-44.2); Mean Corpuscular HGB Conc 33.9 g/dl (32-36); Mean Corpuscular Hemoglobin 32.3 pg (26-34); Mean Corpuscular Volume 95.4 fl (80-100); Mean Platelet Volume 9.7 fl (7.4-10.4); Monocytes Percent Auto 7.7 % (2.6-8.5); Neutrophils Absolute Auto 8.3 K/mm3 (1.3-6.7); Neutrophils Percent Auto 67.4 % (45.5-73.1); Platelet Count Result 313 k/mm3 (150-375); Red Blood Count 5.04 M/mm3 (4.6-6.20); White Blood Count 12.4 K/mm3 (4.5-10.0)
[2021-12-14] MEDS: LORATADINE 10 MG TABLET PO (09:14)
[2021-12-14] MEDS: BUMETANIDE 1 MG TABLET PO (09:14)
[2021-12-14] MEDS: predniSONE 5 MG TABLET PO ×2 (09:15→17:23)
[2021-12-14] MEDS: POTASSIUM CHLORIDE 10 MEQ TABLET.ER PO (09:15)
[2021-12-14] MEDS: EUCERIN CREAM 120 GM JAR 1 APPLIC TOPICAL (09:15)
[2021-12-14] MEDS: levoFLOXacin 750 MG TABLET PO (09:15)
[2021-12-14] MEDS: PANTOPRAZOLE 40 MG TABLET PO (09:15)
[2021-12-14] MEDS: MONTELUKAST SODIUM 10 MG TABLET PO (09:15)
[2021-12-14] MEDS: ENOXAPARIN 40 MG/0.4 ML SYRINGE SUB-Q (09:16)
[2021-12-14] MEDS: BETAMETHASONE/CLOTRIMAZOLE CR 15 GM TUBE 1 APPLIC TOPICAL ×2 (09:16→22:14)
[2021-12-14] MEDS: FLUTICASONE/SALMETEROL 115-21 MCG INHALER 1 PUFF 2 PUFF INHALATION ×2 (09:34→21:00)
--- NOTE | 2021-12-14 10:15 | PM.IMPN ---
Progress Note: A&P Assessment and Plan (1) Urinary tract infection: Code(s): N39.0 - Urinary tract infection, site not specified Status: Acute Assessment and Plan: presents to the ER with urinary symptoms including urgency, hesitancy, frequency, feelings of incomplete bladder evacuation, dysuria, and mild hematuria over the past 9 days. UA appeared infection IV ceftriaxone started, will switch to levaquin Urine culture grew Ecoli Monterroso catheter was placed in the emergency department though there is no documentation as to how much urine was yielded on insertion. voiding trial was successful (2) Elevated LFTs: Code(s): R79.89 - Other specified abnormal findings of blood chemistry Status: Acute Assessment and Plan: Abdominal exam is benign no known history of liver disease. hepatitis panel negative CK 283 current AST/ALT 45/91 Stable at this time and trending down (3) Dehydration: Code(s): E86.0 - Dehydration Status: Acute Assessment and Plan: CK mildly elevated upon arrival IV fluids given for hydration BUN/Cr stable at 13/0.50 Resolved Fluids stopped (4) Abnormal chest x-ray: Code(s): R93.89 - Abnormal findings on diagnostic imaging of other specified body structures Status: Acute Assessment and Plan: Chest x-ray shows bibasilar infiltrates with may represent atelectasis or pneumonia. continue azithromycin for now. WBC decreased to 12.4 Does not appear to be a PNA No notable cough (5) Chronic obstructive pulmonary disease: Code(s): J44.9 - Chronic obstructive pulmonary disease, unspecified Status: Acute Assessment and Plan: He is steroid dependent on low-dose daily prednisone. No acute exacerbation. Continue inhalers and nebulizers. 12/11/21: Continue Steroids as well as inhalers /nebulizers. Continue supplemental oxygen. Patient is post to wear this at home. I discussed with him the importance compliance. Patient was given incentive spirometer. 12/12/21 Switched antibiotics to PO levaquin at this time Stable (6) Tobacco dependence: Code(s): F17.200 - Nicotine dependence, unspecified, uncomplicated Status: Acute Assessment and Plan: Smoking cessation is imperative in was encouraged. He declines the need for a nicotine patch at this time. 12/11/21: Spent approximately 10 minutes discussing importance of smoking cessation. (7) Hypertension: Code(s): I10 - Essential (primary) hypertension Status: Acute Assessment and Plan: Systolic blood pressures have been running in the 140s to 150s. Antihypertensives will be resumed and blood pressures will be monitored daily. 12/11/21: Continue home medications and monitor. Currently stable. 12/12/21 BP remains stable, continue to trend 12/13/21 BP remains stable at 138/89 12/14/21 BP remains stable at 124/84 (8) Chronic respiratory failure with hypoxia: Code(s): J96.11 - Chronic respiratory failure with hypoxia Status: Acute Assessment and Plan: He has chronic hypoxia and an oxygen tank at home which he does not use. 12/11/21: Non-compliance with therapy. Discussed and educated on the importance of oxygen compliance. MOnitor oxygen sats. 12/12/21 denies home o2, however appears to be noncompliant, likely at baseline 12/13/21 seems to be worse at this time, continue oxygen chest xray ordered 12/14/21 seems better (9) Dermatitis: Code(s): L30.9 - Dermatitis, unspecified Status: Acute Assessment and Plan: He has widespread subcentimeter hyperpigmented macules as detailed above which have been present for over 20 years. Skin looks quite dry, Eucerin cream ordered. 12/11/21: Rash again noted for this provider. Pt. denies itching or discomfort. He may continue Eucerin cream. Suggest outpatient Rahul
--- NOTE | 2021-12-14 10:15 | P.PNIM_ITS ---
Progress Note: A&P Assessment and Plan (1) Urinary tract infection: Code(s): N39.0 - Urinary tract infection, site not specified Status: Acute Assessment and Plan: * presents to the ER with urinary symptoms including urgency, hesitancy, frequency, feelings of incomplete bladder evacuation, dysuria, and mild hematuria over the past 9 days. * UA appeared infection * IV ceftriaxone started, will switch to levaquin * Urine culture grew Ecoli * Monterroso catheter was placed in the emergency department though there is no documentation as to how much urine was yielded on insertion. * voiding trial was successful (2) Elevated LFTs: Code(s): R79.89 - Other specified abnormal findings of blood chemistry Status: Acute Assessment and Plan: * Abdominal exam is benign * no known history of liver disease. * hepatitis panel negative * CK 283 * current AST/ALT 45/91 * Stable at this time and trending down (3) Dehydration: Code(s): E86.0 - Dehydration Status: Acute Assessment and Plan: * CK mildly elevated upon arrival * IV fluids given for hydration * BUN/Cr stable at 13/0.50 * Resolved * Fluids stopped (4) Abnormal chest x-ray: Code(s): R93.89 - Abnormal findings on diagnostic imaging of other specified body structures Status: Acute Assessment and Plan: * Chest x-ray shows bibasilar infiltrates with may represent atelectasis or pneumonia. * continue azithromycin for now. * WBC decreased to 12.4 * Does not appear to be a PNA * No notable cough (5) Chronic obstructive pulmonary disease: Code(s): J44.9 - Chronic obstructive pulmonary disease, unspecified Status: Acute Assessment and Plan: He is steroid dependent on low-dose daily prednisone. No acute exacerbation. Continue inhalers and nebulizers. * 12/11/21: Continue Steroids as well as inhalers /nebulizers. * Continue supplemental oxygen. Patient is post to wear this at home. I discussed with him the importance compliance. Patient was given incentive spirometer. * 12/12/21 Switched antibiotics to PO levaquin at this time * Stable (6) Tobacco dependence: Code(s): F17.200 - Nicotine dependence, unspecified, uncomplicated Status: Acute Assessment and Plan: Smoking cessation is imperative in was encouraged. He declines the need for a nicotine patch at this time. * 12/11/21: Spent approximately 10 minutes discussing importance of smoking cessation. (7) Hypertension: Code(s): I10 - Essential (primary) hypertension Status: Acute Assessment and Plan: Systolic blood pressures have been running in the 140s to 150s. Antihypertensives will be resumed and blood pressures will be monitored daily. * 12/11/21: Continue home medications and monitor. Currently stable. * 12/12/21 BP remains stable, continue to trend * 12/13/21 BP remains stable at 138/89 * 12/14/21 BP remains stable at 124/84 (8) Chronic respiratory failure with hypoxia: Code(s): J96.11 - Chronic respiratory failure with hypoxia Status: Acute Assessment and Plan: He has chronic hypoxia and an oxygen tank at home which he does not use. * 12/11/21: Non-compliance with therapy. Discussed and educated on the importance of oxygen compliance. MOnitor oxygen sats. * 12/12/21 denies home o2, however appears to be noncompliant, likely
[2021-12-14 10:57] LABS: Alanine Aminotransferase 91 U/L (6-50); Albumin Level 3.6 g/dL (3.5-5.1); Alkaline Phosphatase 79 U/L (38-126); Anion Gap 7 mmol/L (8-16); Aspartate Amino Transferase 45 U/L (17-59); Bilirubin,Total 0.9 mg/dL (0.2-1.3); Blood Urea Nitrogen 13 mg/dL (9-20); Calcium 8.9 mg/dL (8.4-10.2); Carbon Dioxide 32 mmol/L (22-30); Chloride 93 mmol/L (98-107); Estimated CRCL calculation 146 ml/min; Estimated Glomerular Filt Rate > 60; Glucose 92 mg/dL (65-110); Magnesium 2.1 mg/dL (1.6-2.3); Sodium 132 mmol/L (137-145)
[2021-12-15] VITALS (8 sets, daily range): BP systolic 130–136; BP diastolic 84–92; PULSE 71–99; RESP 16–18; TEMP 36.7; O2SAT 92–93
[2021-12-15] MEDS: ALBUTEROL SULFATE NEB 2.5 MG/3 ML INH 5 MG INHALATION ×3 (01:27→14:12)
[2021-12-15] MEDS: IPRATROPIUM BR 0.02% INH SOLN 0.5 MG/2.5 ML VIAL INHALATION ×3 (01:28→14:12)
[2021-12-15 06:28] LABS: Basophils Absolute Auto 0.2 K/mm3 (0.0-0.1); Basophils Percent Auto 1.5 % (0.2-1.2); Eosinophils Absolute Auto 0.4 K/mm3 (0-0.3); Hematocrit 47.2 % (42.0-52.0); Hemoglobin 15.7 g/dL (14.0-18.0); Immature Granulocyte Absolute 0.77 K/mm3 (0.00-0.031); Immature Granulocyte Percent A 6.3 % (0-0.5); Lymphocytes Absolute Auto 1.85 K/mm3 (0.9-3.2); Lymphocytes Percent Auto 15.2 % (18.3-44.2); Mean Corpuscular HGB Conc 33.3 g/dl (32-36); Mean Corpuscular Hemoglobin 30.5 pg (26-34); Mean Corpuscular Volume 91.8 fl (80-100); Mean Platelet Volume 9.2 fl (7.4-10.4); Monocytes Absolute Auto 1.2 K/mm3 (0.1-0.6); Monocytes Percent Auto 9.4 % (2.6-8.5); Neutrophils Absolute Auto 7.9 K/mm3 (1.3-6.7); Neutrophils Percent Auto 64.6 % (45.5-73.1); Platelet Count Result 321 k/mm3 (150-375); Red Blood Count 5.14 M/mm3 (4.6-6.20); Red Cell Distribution Width 13.3 % (11.5-14.5); White Blood Count 12.2 K/mm3 (4.5-10.0)
[2021-12-15 06:37] LABS: Alanine Aminotransferase 74 U/L (6-50); Albumin Level 3.5 g/dL (3.5-5.1); Alkaline Phosphatase 69 U/L (38-126); Anion Gap 8 mmol/L (8-16); Aspartate Amino Transferase 36 U/L (17-59); Bilirubin,Total 0.8 mg/dL (0.2-1.3); Blood Urea Nitrogen 12 mg/dL (9-20); Calcium 8.7 mg/dL (8.4-10.2); Carbon Dioxide 32 mmol/L (22-30); Chloride 95 mmol/L (98-107); Estimated CRCL calculation 124 ml/min; Estimated Glomerular Filt Rate > 60; Glucose 99 mg/dL (65-110); Magnesium 2.2 mg/dL (1.6-2.3); Potassium 3.7 mmol/L (3.4-5.0); Sodium 135 mmol/L (137-145)
[2021-12-15] MEDS: FLUTICASONE/SALMETEROL 115-21 MCG INHALER 1 PUFF 2 PUFF INHALATION (08:45)
[2021-12-15] MEDS: EUCERIN CREAM 120 GM JAR 1 APPLIC TOPICAL (09:28)
[2021-12-15] MEDS: LORATADINE 10 MG TABLET PO (09:28)
[2021-12-15] MEDS: ENOXAPARIN 40 MG/0.4 ML SYRINGE SUB-Q (09:28)
[2021-12-15] MEDS: levoFLOXacin 750 MG TABLET PO (09:28)
[2021-12-15] MEDS: POTASSIUM CHLORIDE 10 MEQ TABLET.ER PO (09:28)
[2021-12-15] MEDS: MONTELUKAST SODIUM 10 MG TABLET PO (09:28)
[2021-12-15] MEDS: BETAMETHASONE/CLOTRIMAZOLE CR 15 GM TUBE 1 APPLIC TOPICAL (09:28)
[2021-12-15] MEDS: BUMETANIDE 1 MG TABLET PO (09:28)
[2021-12-15] MEDS: PANTOPRAZOLE 40 MG TABLET PO (09:28)
[2021-12-15] MEDS: predniSONE 5 MG TABLET PO (09:28)
--- NOTE | 2021-12-15 09:30 | PM.DS ---
DS: Admitting Diagnosis Discharge Date 12/15/21929 Admitting Diagnosis UTI, transaminitis DS: Discharge Diagnosis Discharge Diagnosis (1) Urinary tract infection: Code(s): N39.0 - Urinary tract infection, site not specified Status: Acute Assessment and Plan: presents to the ER with urinary symptoms including urgency, hesitancy, frequency, feelings of incomplete bladder evacuation, dysuria, and mild hematuria over the past 9 days. UA appeared infection IV ceftriaxone started, will switch to levaquin Urine culture grew Ecoli Monterroso catheter was placed in the emergency department though there is no documentation as to how much urine was yielded on insertion. voiding trial was successful (2) Elevated LFTs: Code(s): R79.89 - Other specified abnormal findings of blood chemistry Status: Acute Assessment and Plan: Abdominal exam is benign no known history of liver disease. hepatitis panel negative CK 283 current AST/ALT 36/74 Stable at this time and trending down (3) Dehydration: Code(s): E86.0 - Dehydration Status: Acute Assessment and Plan: CK mildly elevated upon arrival IV fluids given for hydration BUN/Cr stable at 12/0.60 Resolved Fluids stopped (4) Abnormal chest x-ray: Code(s): R93.89 - Abnormal findings on diagnostic imaging of other specified body structures Status: Acute Assessment and Plan: Chest x-ray shows bibasilar infiltrates with may represent atelectasis or pneumonia. continue azithromycin for now. WBC decreased to 12.2 Does not appear to be a PNA No notable cough (5) Chronic obstructive pulmonary disease: Code(s): J44.9 - Chronic obstructive pulmonary disease, unspecified Status: Acute Assessment and Plan: He is steroid dependent on low-dose daily prednisone. No acute exacerbation. Continue inhalers and nebulizers. 12/11/21: Continue Steroids as well as inhalers /nebulizers. Continue supplemental oxygen. Patient is post to wear this at home. I discussed with him the importance compliance. Patient was given incentive spirometer. 12/12/21 Switched antibiotics to PO levaquin at this time Stable (6) Tobacco dependence: Code(s): F17.200 - Nicotine dependence, unspecified, uncomplicated Status: Acute Assessment and Plan: Smoking cessation is imperative in was encouraged. He declines the need for a nicotine patch at this time. 12/11/21: Spent approximately 10 minutes discussing importance of smoking cessation. (7) Hypertension: Code(s): I10 - Essential (primary) hypertension Status: Acute Assessment and Plan: Systolic blood pressures have been running in the 140s to 150s. Antihypertensives will be resumed and blood pressures will be monitored daily. 12/11/21: Continue home medications and monitor. Currently stable. 12/12/21 BP remains stable, continue to trend 12/13/21 BP remains stable at 138/89 12/14/21 BP remains stable at 124/84 (8) Chronic respiratory failure with hypoxia: Code(s): J96.11 - Chronic respiratory failure with hypoxia Status: Acute Assessment and Plan: He has chronic hypoxia and an oxygen tank at home which he does not use. 12/11/21: Non-compliance with therapy. Discussed and educated on the importance of oxygen compliance. MOnitor oxygen sats. 12/12/21 denies home o2, however appears to be noncompliant, likely at baseline 12/13/21 seems to be worse at this time, continue oxygen chest xray ordered 12/14/21 seems better (9) Dermatitis: Code(s): L30.9 - Dermatitis, unspecified Status: Acute Assessment and Plan: He has widespread subcentimeter hyperpigmented macules as detailed above which have been present for over 20 years. Skin looks quite dry, Eucerin cream ordered. 12/11/21: Rash again noted for t
--- NOTE | 2021-12-15 09:30 | P.DS_ITS ---
DS: Admitting Diagnosis Discharge Date 12/15/21929 Admitting Diagnosis UTI, transaminitis DS: Discharge Diagnosis Discharge Diagnosis (1) Urinary tract infection: Code(s): N39.0 - Urinary tract infection, site not specified Status: Acute Assessment and Plan: * presents to the ER with urinary symptoms including urgency, hesitancy, frequency, feelings of incomplete bladder evacuation, dysuria, and mild hematuria over the past 9 days. * UA appeared infection * IV ceftriaxone started, will switch to levaquin * Urine culture grew Ecoli * Monterroso catheter was placed in the emergency department though there is no documentation as to how much urine was yielded on insertion. * voiding trial was successful (2) Elevated LFTs: Code(s): R79.89 - Other specified abnormal findings of blood chemistry Status: Acute Assessment and Plan: * Abdominal exam is benign * no known history of liver disease. * hepatitis panel negative * CK 283 * current AST/ALT 36/74 * Stable at this time and trending down (3) Dehydration: Code(s): E86.0 - Dehydration Status: Acute Assessment and Plan: * CK mildly elevated upon arrival * IV fluids given for hydration * BUN/Cr stable at 12/0.60 * Resolved * Fluids stopped (4) Abnormal chest x-ray: Code(s): R93.89 - Abnormal findings on diagnostic imaging of other specified body structures Status: Acute Assessment and Plan: * Chest x-ray shows bibasilar infiltrates with may represent atelectasis or pneumonia. * continue azithromycin for now. * WBC decreased to 12.2 * Does not appear to be a PNA * No notable cough (5) Chronic obstructive pulmonary disease: Code(s): J44.9 - Chronic obstructive pulmonary disease, unspecified Status: Acute Assessment and Plan: He is steroid dependent on low-dose daily prednisone. No acute exacerbation. Continue inhalers and nebulizers. * 12/11/21: Continue Steroids as well as inhalers /nebulizers. * Continue supplemental oxygen. Patient is post to wear this at home. I discussed with him the importance compliance. Patient was given incentive spirometer. * 12/12/21 Switched antibiotics to PO levaquin at this time * Stable (6) Tobacco dependence: Code(s): F17.200 - Nicotine dependence, unspecified, uncomplicated Status: Acute Assessment and Plan: Smoking cessation is imperative in was encouraged. He declines the need for a nicotine patch at this time. * 12/11/21: Spent approximately 10 minutes discussing importance of smoking cessation. (7) Hypertension: Code(s): I10 - Essential (primary) hypertension Status: Acute Assessment and Plan: Systolic blood pressures have been running in the 140s to 150s. Antihypertensives will be resumed and blood pressures will be monitored daily. * 12/11/21: Continue home medications and monitor. Currently stable. * 12/12/21 BP remains stable, continue to trend * 12/13/21 BP remains stable at 138/89 * 12/14/21 BP remains stable at 124/84 (8) Chronic respiratory failure with hypoxia: Code(s): J96.11 - Chronic respiratory failure with hypoxia Status: Acute Assessment and Plan: He has chronic hypoxia and an oxygen tank at home which he does not use. * 12/11/21: Non-compliance with therapy. Discussed and educated on the
--- NOTE | 2021-12-15 13:09 | PCOTNOTE ---
Attempted to see patient this pm, however patient refused. Pt waiting on son to bring clothes for discharge. I'd rather just rest here while I'm waiting for him to come.
== END 2021-12-15 15:50 | DRG 690 ==
LOC: ANHED 10:54 → ANH3MEDSUR 11:04
PROVIDERS: Emergency Medicine; Nurse Practitioner Adult Health; Physician Assistant; Admitting Provider Family Medicine; Emergency Provider Emergency Medicine; Visit Provider Nurse Practitioner
DX: N39.0 Urinary tract infection, site not specified (principal); J96.11 Chronic respiratory failure with hypoxia; B96.20 Unspecified Escherichia coli [E. coli] as the cause of diseases classified elsewhere; E86.0 Dehydration; J44.9 Chronic obstructive pulmonary disease, unspecified; Z20.822 Contact with and (suspected) exposure to COVID-19; I10 Essential (primary) hypertension; L30.9 Dermatitis, unspecified; B35.3 Tinea pedis; R79.89 Other specified abnormal findings of blood chemistry; F17.210 Nicotine dependence, cigarettes, uncomplicated; Z91.199 Patient's noncompliance with other medical treatment and regimen due to unspecified reason; Z23 Encounter for immunization; E66.01 Morbid (severe) obesity due to excess calories; Z68.39 Body mass index [BMI] 39.0-39.9, adult
CPT/HCPCS: 36415; 36600; 71045; 71046; 80048; 80053; 80074; 81001; 82375; 82550; 82805; 83050; 83735; 84145; 84439; 84443; 84480; 85025; 85027; 87040; 87077; 87086; 87186; 87502; 90471; 90694; 92610; 93005; 93970; 94640; 96361; 96365; 96366; 96367; 96372; 96375; 96376; 97110; 97161; 97166; 97530; 99285; A9270; G0008; G0378; J0456; J0696; J1650; J2930; J7030; J7512; U0003; U0005